=== PATIENT | female | born 1960 | race Caucasian/White ===

== ENCOUNTER 2016-06-19 17:42 | Emergency (ER) | payer BC, OTHER ==
[~2016-06-19 17:42] MED LIST: LIPITOR10 MG PO
== END 2016-06-19 19:16 | disposition home or self-care (01) ==
LOC: ER1 17:42
DX: R79.1 Abnormal coagulation profile (principal); J44.9 Chronic obstructive pulmonary disease, unspecified; G40.909 Epilepsy, unspecified, not intractable, without status epilepticus; F17.210 Nicotine dependence, cigarettes, uncomplicated; Z88.0 Allergy status to penicillin; Z88.2 Allergy status to sulfonamides; Z90.49 Acquired absence of other specified parts of digestive tract; Z79.01 Long term (current) use of anticoagulants; Z95.2 Presence of prosthetic heart valve
CPT/HCPCS: 36415; 85610; 85730; 99283

== ENCOUNTER 2021-07-25 14:02 | Emergency (ER) | payer OTHER ==
[~2021-07-25 14:02] MED LIST changes: +COUMADIN3 MG PO; +LOPRESSOR 25 MG25 MG PO; +PROTONIX40 MG PO; +SUBOXONE 8 MG-1 EACH PO
== END 2021-07-25 17:15 | disposition home or self-care (01) ==
LOC: ER1 14:02
DX: N81.2 Incomplete uterovaginal prolapse (principal); I51.9 Heart disease, unspecified; F17.200 Nicotine dependence, unspecified, uncomplicated; Z88.0 Allergy status to penicillin; Z88.2 Allergy status to sulfonamides
CPT/HCPCS: 96372; 99283; J1885

== ENCOUNTER → 2021-10-10 | Outpatient (CLI) | payer OTHER | LOC: KOH-I 08:46 | DX: R10.84 Generalized abdominal pain (principal); F17.210 Nicotine dependence, cigarettes, uncomplicated; R91.1 Solitary pulmonary nodule; Z90.49 Acquired absence of other specified parts of digestive tract | CPT/HCPCS: 71271; 76705 ==